=== PATIENT | female | born 1990 ===

== ENCOUNTER 2018-01-08 23:09 | Emergency (ER) | payer MEDICAID ==
--- NOTE | 2018-01-08 23:18 | EDPHY ---
H & P Time Seen by Provider: 01/08/18 23:15 HPI/ROS: HPI CHIEF COMPLAINT: Alcohol intoxication, [facility] HOLD. HISTORY OF PRESENT ILLNESS: Patient is a 27-year-old female she presents emergency room by EMS and police for alcohol intoxication. They make contact with her as she was in the middle of the road highly intoxicated with alcohol. She denies want hurt herself or anybody else. After being picked up by police she got into the back of a police cruiser they were going to transport her to the [facility], however she was banging her head on the back of the glass police cruiser. The postal sorting officer was concerned that she could not walk appropriately so brought her to the emergency room for evaluation. Upon arrival to the emergency room the patient is calm and cooperative. She is ambulatory to the bath without difficulty. She can't ambulate and she answers my questions appropriately. She will be dispositioned appropriately to the [facility]. She admits to large amount of alcohol this evening. Denies other drugs. Past Medical History: Denies significant medical history Past Surgical History: Denies significant surgical history Social History: Admits to alcohol use large amount tonight. Denies drug use. Family History: Noncontributory ROS REVIEW OF SYSTEMS: A comprehensive 10 point review of systems is otherwise negative aside from elements mentioned in the history of present illness. Exam Constitutional atraumatic exam, intoxicated, smells of alcohol, triage nursing summary reviewed, vital signs reviewed, awake/alert. Eyes normal conjunctivae and sclera, EOMI, PERRLA. HENT head and neck atraumatic normal inspection, atraumatic, moist mucus membranes, no epistaxis, neck supple/ no meningismus, no raccoon eyes. Respiratory clear to auscultation bilaterally, normal breath sounds, no respiratory distress, no wheezing. Cardiovascular rate normal, regular rhythm, no murmur, no edema, distal pulses normal. Gastrointestinal soft, non-tender, no rebound, no guarding, normal bowel sounds, no distension, no pulsatile mass. Genitourinary no CVA tenderness. Musculoskeletal no midline vertebral tenderness, full range of motion, no calf swelling, no tenderness of extremities, no meningismus, good pulses, neurovascularly intact. Skin pink, warm, & dry, no rash, skin atraumatic. Neurologic normal gait, awake, alert and oriented x 3, AAOx3, moves all 4 extremities equally, motor intact, sensory intact, CN II-XII intact, normal cerebellar, normal vision, normal speech. Psychiatric normal mood/affect. Heme/Lymph/Immune no lymphadenopathy. Differential Diagnosis: Includes but is not limited to in a particular order acute alcohol intoxication, alcohol abuse. Medical Decision Making: Plan for this patient she is ambulatory well to the bathroom in no acute distress. She is stable gait. Answers my questions appropriately. Re-evaluation: Patient be appropriately disposition to the [facility]. Source: Patient, Police, EMS Constitutional: Initial Vital Signs Temperature (C) 36.7 C 01/08/18 23:15 Heart Rate 107 H 01/08/18 23:15 Respiratory Rate 18 01/08/18 23:15 Blood Pressure 130/99 H 01/08/18 23:15 O2 Sat (%) 96 01/08/18 23:15 O2 Delivery Mode Room Air Departure - Departure Disposition: Home, Routine, Self-Care Clinical Impression: Alcoholic intoxication Condition: Good Instructions: Alcohol Intoxication (ED), Abuse of Alcohol (ED) Referrals: Patient,NotPresent [Unknown] - As per Instructions
[2018-01-08 23:26] VITALS: BP 130/99; PULSE 107; RESP 18; TEMP 98.1; O2SAT 96
== END 2018-01-08 23:40 | disposition home or self-care (01) ==
DX: F10.129 Alcohol abuse with intoxication, unspecified (principal)